=== PATIENT | male | born 1970 | race Hispanic/Latino ===

== ENCOUNTER 2021-01-08 08:45 | Emergency (ER) | payer BC ==
--- NOTE | 2021-01-08 09:05 | EDPHYS ---
Physician Documentation [facility] Name: Wayne Pemberton Jr Age: 50 yrs Sex: Male : 1970 Arrival Date: 01/08/2021 Time: 08:49 Bed 4 Private MD: ED Physician Miguel Bean HPI: 01/08 09:02 This 50 yrs old Male presents to ER via Ambulatory with complaints of Ear Pain rn - antibiotics not working, Facial Swelling. 09:02 The patient presents with pain. The complaints affect the right ear. Onset: The rn symptoms/episode began/occurred 2 day(s) ago. Modifying factors: The symptoms are alleviated by nothing, the symptoms are aggravated by pulling on ears, touching. Associated signs and symptoms: Pertinent negatives: fever, sore throat, vertigo, vomiting. Severity of symptoms: At their worst the symptoms were moderate in the emergency department the symptoms are unchanged. The patient has not experienced similar symptoms in the past. The patient has been recently seen by a physician:. Reports right ear pain for 2 days, seen at clinic, given amoxicillin, still having moderate pain to right ear despite tylenol. No fever. Wears headsets at work. . Historical: - Allergies: 08:59 No Known Allergies; iw - Home Meds: 08:59 None [Active]; iw - PMHx: 08:59 None; iw - PSHx: 08:59 Knee surgery; iw - Immunization history:: Adult Immunizations not up to date. - Social history:: Smoking status: Patient reports the use of cigarette tobacco products, smokes one-half pack cigarettes per day. - Family history:: not pertinent. - Hospitalizations: : No recent hospitalization is reported. ROS: 09:02 Constitutional: Negative for fever, chills, and weight loss, Eyes: Negative for injury, rn pain, redness, and discharge, ENT: + right ear pain and discharge Exam: 09:02 Constitutional: This is a well developed, well nourished patient who is awake, alert, rn and in no acute distress. Head/Face: Normocephalic, atraumatic. ENT: + right external auditory canal with erythema and inflammation, + painful manipulation right ear. normal TM. No perforation. Vital Signs: 08:57 BP 123 / 85; Pulse 79; Resp 16; Pulse Ox 100% on R/A; Weight 89.81 kg; Height 5 ft. 7 iw in. (170.18 cm); Pain 10/10; 08:57 Body Mass Index 31.01 (89.81 kg, 170.18 cm) MDM: 08:52 Patient medically screened. rn 09:02 Differential diagnosis: otitis externa. Data reviewed: vital signs, nurses notes, and rn as a result, I will discharge patient. Counseling: I had a detailed discussion with the patient and/or guardian regarding: the historical points, exam findings, and any diagnostic results supporting the discharge/admit diagnosis, the need for outpatient follow up, to return to the emergency department if symptoms worsen or persist or if there are any questions or concerns that arise at home. Special discussion: I discussed with the patient/guardian in detail that at this point there is no indication for admission to the hospital. It is understood, however, that if the symptoms persist or worsen the patient needs to return immediately for re-evaluation. Administered Medications: No medications were administered Disposition: 01/08/21 09:04 Discharged to Home. Impression: Other otitis externa, right ear. - Condition is Stable. - Discharge Instructions: Ear Drops, Adult, Otitis Externa. - Prescriptions for Ciprodex 0.3- 0.1 % Otic Drops, Suspension - instill 4 drop by OTIC route every 12 hours for 7 days , for ears ONLY; 1 Container. - Medication Reconciliation Form, Thank You Letter, Antibiotic Education, Prescription Opioid Use form. - Follow up: Private Physician; When: As needed; Reason: Recheck today's complaints, Re-evaluation by your physician. - Problem is new. - Symptoms are unchanged. Signatures: Rupal Stevenson RN RN iw Miguel Bean MD MD journeyman pressman: (The following items were deleted from the chart) 09:26 09:04 01/08/2021 09:04 Discharged to Home. Impression: Other otitis externa, right ear. iw Condition is Stable. Forms are Medication Reconciliation Form, Thank You Letter, Antibiotic Education, Prescription Opioid Use. Follow up: Private Physician; When: As needed; Reason: Recheck today's complaints, Re-evaluation by your physician. Problem is new. Symptoms are unchanged. rn
--- NOTE | 2021-01-08 09:05 | ER ---
Nurse's Notes [facility] Name: Wayne Pemberton Jr Age: 50 yrs Sex: Male : 1970 Arrival Date: 01/08/2021 Time: 08:49 Bed 4 Private MD: Diagnosis: Other otitis externa, right ear Presentation: 01/08 08:57 Chief complaint: Patient states: diagnosed with right ear infection on Wednesday, started iw on amoxicillin, still having a lot of pain and feel like he has some swelling on right side of face. Coronavirus screen: At this time, the client does not indicate any symptoms associated with coronavirus-19. Ebola Screen: Patient negative for fever greater than or equal to 101.5 degrees Fahrenheit, and additional compatible Ebola Virus Disease symptoms Patient denies exposure to infectious person. Patient denies travel to an Ebola-affected area in the 21 days before illness onset. No symptoms or risks identified at this time. Initial Sepsis Screen: Does the patient meet any 2 criteria? No. Patient's initial sepsis screen is negative. Does the patient have a suspected source of infection? No. Patient's initial sepsis screen is negative. Risk Assessment: Do you want to hurt yourself or someone else? Patient reports no desire to harm self or others. Onset of symptoms was January 06, 2021. 08:57 Method Of Arrival: Ambulatory iw 08:57 Acuity: MARY 4 iw Historical: - Allergies: 08:59 No Known Allergies; iw - Home Meds: 08:59 None [Active]; iw - PMHx: 08:59 None; iw - PSHx: 08:59 Knee surgery; iw - Immunization history:: Adult Immunizations not up to date. - Social history:: Smoking status: Patient reports the use of cigarette tobacco products, smokes one-half pack cigarettes per day. - Family history:: not pertinent. - Hospitalizations: : No recent hospitalization is reported. Screenin:10 Abuse screen: Denies threats or abuse. Denies injuries from another. Nutritional ss screening: No deficits noted. Tuberculosis screening: Never had TB. Fall Risk None identified. Assessment: 09:11 General: Appears uncomfortable, Behavior is calm, cooperative, Denies fever, feeling ss ill, fatigue, chills. Pain: Complains of pain in right ear Pain currently is 10 out of 10 on a pain scale. Quality of pain is described as aching, throbbing, Is continuous. Neuro: Level of Consciousness is awake, alert, obeys commands, Oriented to person, place, time, situation. Respiratory: Airway is patent Respiratory effort is even, unlabored, Respiratory pattern is regular, symmetrical. GI: Patient currently denies abdominal pain, diarrhea, nausea, vomiting. EENT: Oral mucosa is moist. Derm: Skin is intact, is healthy with good turgor, Skin is dry, Skin is pink, warm \T\ dry. normal. Musculoskeletal: Circulation, motion, and sensation intact. Range of motion: intact in all extremities, Swelling absent. 09:15 General: Appears in no apparent distress. Behavior is calm, cooperative. Pain: iw Complains of pain in right ear. Neuro: Level of Consciousness is awake, alert, obeys commands, Oriented to person, place, time, situation, Moves all extremities. Full function. EENT: Reports pain in right ear. Vital Signs: 08:57 BP 123 / 85; Pulse 79; Resp 16; Pulse Ox 100% on R/A; Weight 89.81 kg; Height 5 ft. 7 iw in. (170.18 cm); Pain 10/10; 08:57 Body Mass Index 31.01 (89.81 kg, 170.18 cm) iw ED Course: 08:49 Patient arrived in ED. as 08:52 Miguel Bean MD is Attending Physician. rn 08:54 Sami Ruelas RN is Primary Nurse. jd3 08:58 Triage completed. iw 08:59 Arm band placed on. iw 09:10 Patient has correct armband on for positive identification. Bed in low position. Call ss light in reach. 09:10 No provider procedures requiring assistance completed. Patient did not have IV access ss during this emergency room visit. Administered Medications: No medications were administered Outcome: 09:04 Discharge ordered by . rn 09:26 Discharged to home ambulatory. iw 09:26 Condition: good 09:26 Discharge instructions given to patient, Instructed on discharge instructions, follow up and referral plans. medication usage, Demonstrated understanding of instructions, follow-up care, medications, Prescriptions given X 1. 09:26 Patient left the ED. iw Signatures: Ruthie Cordon Irene, RN RN iw Miguel Bean MD MD rn Smirch, Shelby, RN RN ss Sami Ruelas, RN RN jd3
== END 2021-01-08 09:26 | disposition home or self-care (01) ==
LOC: ER 08:45
DX: H60.8X1 Other otitis externa, right ear (principal); F17.210 Nicotine dependence, cigarettes, uncomplicated
CPT/HCPCS: 99281

== ENCOUNTER 2024-03-15 21:31 | Emergency (ER) | payer SELFPAY ==
--- OUTSIDE RECORDS SUMMARY | 2024-03-15 21:33 | XMS REPORT | Continuity of Care Document ---
Author Name Unknown Address [address] [facility] [address] [place] [address] [facility] thconnect Address [address] [facility] [address] [place] [address] Care Team Providers Care Cork Grinder Name Role Phone Unavailable Unavailable Unavailable Encounters Start Date/Time End Date/Time Encounter Type Admission Type Attending Clinicians Care Facility Care Department Encounter ID Source 2022-12-31 09:41:43 2022-12-31 09:41:43 Outpatient [facility] [id number] Balbir Burrell 2022-11-17 16:34:03 2022-11-17 16:34:03 Outpatient [facility] [id number] Balbir Burrell
[2024-03-15] MEDS ORDERED: ACETAMINOPHEN 500 MG TAB ONE (22:51)
--- NOTE | 2024-03-15 23:06 | RAD REPORT ---
EXAM DESCRIPTION: RAD - Chest Pa And Lat (2 Views) - 03/15/2024 10:16 pm CLINICAL HISTORY: CHEST PAIN COMPARISON: Chest Pa And Lat (2 Views) dated 01/08/2017; Abdomen 1 View (KUB) dated 01/08/2017; Chest Si ngle View dated 07/23/2016; Chest Single View dated 07/22/2016 TECHNIQUE: PA and lateral views of the chest were obtained. FINDINGS: The lungs are clear. Heart size is normal and central vasculature is within normal limits. No pleural effusion or pneumothorax seen. No acute bony finding noted. IMPRESSION: No acute cardiopulmonary process.
[2024-03-15 23:09] LABS: Absolute Lymphocytes (CBC) 0.9 K/uL (0.7-4.9); Absolute Monocytes 0.3 K/uL (0.1-1.3); Absolute Neutrophil 5.9 K/uL (1.8-8.0); Basophils % 0.2 % (0-1.3); Eosinophils % 0.1 % (0-4.4); Hematocrit 46.5 % (39.6-49.0); Hemoglobin 16.2 g/dL (13.6-17.9); Lymphocytes % 12.6 % (15.3-44.8); MCH 33.9 pg (27.0-35.0); MCHC 34.8 g/dL (32.0-36.0); MCV 97.4 fL (80-100); MPV 7.7 fL (7.6-11.3); Monocytes % 4.4 % (3.3-12.3); Neutrophils % 82.7 % (41.7-73.7); Nucleated Red Blood Cells % 0.2 % (0-0); Platelets 209 thou/uL (152-406); RBC Red Blood Cell Count 4.77 M/uL (4.33-5.43); Red Cell Distribution Width 13.2 % (12.1-15.2)
[2024-03-15 23:23] LABS: Albumin 3.7 g/dL (3.4-5.0); Albumin/Globulin Ratio 0.9 (1.1-1.8); Anion Gap 6.5 mEq/L (5.0-15.0); Bilirubin Total 0.4 mg/dL (0.2-1.0); Globulin 3.9 g/dL (2.3-3.5); Potassium 3.5 mEq/L (3.5-5.1); Protein, Total 7.6 g/dL (6.4-8.2)
[2024-03-15 23:55] LABS: Specific Gravity > 1.030 (1.005-1.030); Sqamous Epithelial None Seen /HPF (None Seen); Urine Bacteria None Seen /HPF (<20); Urine Bilirubin NEGATIVE (Negative); Urine Blood 1+ (Negative); Urine Clarity Clear (Clear); Urine Color Yellow (Yellow); Urine Culture Reflex Order NOT NEEDED; Urine Glucose NEGATIVE (Negative); Urine Ketones TRACE (Negative); Urine Microscopic Reflex YN ORDER UMIC; Urine Mucus 2+ /HPF (None Seen); Urine Nitrite NEGATIVE (Negative); Urine Protein 1+ (Negative); Urine RBC 21-50 /HPF (None Seen); Urine Urobilinogen 2+ (Normal); Urine WBC <5 /HPF (<5); Urine pH 6.5 (5.0-7.0)
[2024-03-15 23:56] LABS: SARS-CoV-2 Antigen CONTROL BLUE LINE VIS/BG OK; SARS-CoV-2 Antigen Rapid Res Negative (Negative)
[2024-03-16 00:27] LABS: Monoscreen NEG (NEG)
--- NOTE | 2024-03-16 02:27 | EDPHYS ---
Physician Documentation [facility] Name: Wayne Pemberton Jr Age: 53 yrs Sex: Male : 1970 Arrival Date: 03/15/2024 Time: 21:31 Bed 14 Private MD: ED Physician Blane Lagos HPI: 03/15 21:36 This 53 yrs old Male presents to ER via Unassigned with complaints of Urinary sp4 Problem, Groin Pain, Fever - Chills. 22:05 Patient is a very pleasant 54-year-old male presents with complaint of generalized sp4 discomfort, fever chills subjective fever, pain in the groins, and also headache and back discomfort starting yesterday morning.. Historical: - Allergies: 21:40 No Known Allergies; as6 - PMHx: 21:40 None; as6 - PSHx: 21:40 Right knee arthroscopy; as6 - Immunization history:: Adult Immunizations not up to date. - Infectious Disease History:: Denies. - Social history:: Smoking status: Patient reports the use of cigarette tobacco products, smokes two packs cigarettes per day. - Family history:: not pertinent. ROS: 22:05 Constitutional: Positive for subjective fever chills back discomfort pain in the groins sp4 and also headache. 22:05 All other systems are negative, Exam: 22:05 Constitutional: This is a well developed, well nourished patient who is awake, alert, sp4 and in no acute distress. Head/Face: Normocephalic, atraumatic. Eyes: Pupils equal round and reactive to light, extra-ocular motions intact. Lids and lashes normal. Conjunctiva and sclera are not injected. Cornea within normal limits. Periorbital areas with no swelling, redness, or edema. ENT: Nares patent. No nasal discharge, no septal abnormalities noted. Tympanic membranes are normal and external auditory canals are clear. Oropharynx with no redness, swelling, or masses, exudates, or evidence of obstruction, uvula midline. Mucous membranes moist. Neck: Trachea midline, no thyromegaly or masses palpated, and no cervical lymphadenopathy. Supple, full range of motion without nuchal rigidity, or vertebral point tenderness. Chest/axilla: Normal chest wall appearance and motion. Nontender with no deformity. No lesions are appreciated. Cardiovascular: Regular rate and rhythm with a normal S1 and S2. No gallops, murmurs, or rubs. Normal PMI, no JVD. No pulse deficits. Respiratory: Lungs have equal breath sounds bilaterally, clear to auscultation and percussion. No rales, rhonchi or wheezes noted. No increased work of breathing, no retractions or nasal flaring. Abdomen/GI: Soft, with normal bowel sounds. No distension or tympany. No guarding or rebound. No evidence of tenderness throughout. Back: No spinal tenderness. No costovertebral tenderness. Skin: Warm, dry with normal turgor. Normal color with no rashes, no lesions, and no evidence of cellulitis. MS/ Extremity: Pulses equal, no cyanosis. Neurovascular intact. Full, normal range of motion. Neuro: Awake and alert, GCS 15, oriented to person, place, time, and situation. Cranial nerves II-XII grossly intact. Motor strength 5/5 in all extremities. Sensory grossly intact. Psych: Awake, alert, with orientation to person, place and time. Behavior, mood, and affect are within normal limits Vital Signs: 21:39 BP 119 / 75; Pulse 86; Resp 16; Temp 99.8; Pulse Ox 98% ; Weight 95.25 kg; Height 5 ft. as6 7 in. ; Pain 5/10; 23:10 BP 100 / 68; Pulse 72; Resp 16; Pulse Ox 97% on R/A; ha1 23:30 BP 101 / 71; Pulse 58; Resp 16; Pulse Ox 95% on R/A; ha1 03/16 00:30 BP 96 / 59; Pulse 59; Resp 16; Pulse Ox 99% on R/A; ha1 01:30 BP 100 / 66; Pulse 56; Resp 16; Pulse Ox 98% on R/A; ha1 02:21 BP 109 / 70; Pulse 55; Resp 16; Pulse Ox 99% on R/A; ha1 03/15 21:39 Body Mass Index 32.89 (95.25 kg, 170.18 cm) as6 03/15 21:39 Pain Scale: Adult as6 Ousmane Coma Score: 03/15 22:05 Eye Response: spontaneous(4). Motor Response: obeys commands(6). Verbal Response: sp4 oriented(5). Total: 15. MDM: 21:38 Patient medically screened. sp4 03/16 02:21 ED course: EXAM DESCRIPTION: RAD - Chest Pa And Lat (2 Views) - 03/15/2024 10:16 pm sp4 CLINICAL HISTORY: CHEST PAIN COMPARISON: Chest Pa And Lat (2 Views) dated 01/08/2017; Abdomen 1 View (KUB) dated 01/08/2017; Chest Single View dated 07/23/2016; Chest Single View dated 07/22/2016 TECHNIQUE: PA and lateral views of the chest were obtained. FINDINGS: The lungs are clear. Heart size is normal and central vasculature is within normal limits. No pleural effusion or pneumothorax seen. No acute bony finding noted. IMPRESSION: No acute cardiopulmonary process.. 02:25 Differential diagnosis: viral Infection, bacterial infection, URI, bronchitis, sp4 pneumonia UTI, gastroenteritis. Data reviewed: vital signs, nurses notes. Consideration of Admission/Observation Escalation of care including admission/observation considered. ED course: Patient's workup basically does not reveal signs of significant bacterial infection. Possibly common cold/acute systemic viral illness. Will prescribe symptomatic medications.. 03/15 21:38 Order name: CBC with Diff; Complete Time: 02:13 sp4 03/15 21:38 Order name: CMP; Complete Time: 02:13 sp4 03/15 21:38 Order name: Lipase; Complete Time: 02:13 sp4 03/15 21:38 Order name: Urinalysis w/ reflexes; Complete Time: 02:13 sp4 03/15 22:04 Order name: Influenza Screen (a \T\ B); Complete Time: 02:13 sp4 03/15 22:04 Order name: SARS RAPID; Complete Time: 02:13 sp4 03/15 22:04 Order name: [place] Screen Profile; Complete Time: 02:13 sp4 03/15 22:04 Order name: CRP; Complete Time: 02:13 sp4 03/15 22:04 Order name: Chest Pa And Lat (2 Views) XRAY; Complete Time: 02:13 sp4 03/15 21:38 Order name: IV Saline Lock; Complete Time: 22:59 sp4 03/15 21:38 Order name: Labs collected and sent; Complete Time: 22:59 sp4 Administered Medications: 03/15 22:54 Drug: Acetaminophen PO 1000 mg PO once Route: PO; ha1 23:24 Follow up: Response: No adverse reaction; Pain is decreased ha1 Disposition Summary: 03/16/24 02:27 Discharge Ordered Notes: Location: Home sp4 Problem: new sp4 Symptoms: have improved sp4 Condition: Stable sp4 Diagnosis - Fever, unspecified sp4 - Acute viral illness, Common Cold sp4 Followup: sp4 - With: Private Physician - When: 7 - 10 days - Reason: Recheck today's complaints Discharge Instructions: - Discharge Summary Sheet sp4 - Fever, Adult sp4 Forms: - Patient Portal Instructions sp4 Prescriptions: - Ibuprofen 800 mg Oral tablet - take 1 tablet ORAL route every 6 hours As needed PRN FEVER OR PAIN; 30 tablet; sp4 Refills: 0, Product Selection Permitted - ondansetron 8 mg Oral Tablet,disintegrating - take 1 tablet ORAL route every 8 hours PRN nausea; 30 tablet; Refills: 0, sp4 Product Selection Permitted Signatures: Dispatcher [employer] Jimmy Santiago RN RN as6 Carolyn Bray RN RN ha1 Blane Lagos MD MD sp4
--- NOTE | 2024-03-16 02:27 | ER ---
Nurse's Notes [facility] Name: Wayne Pemberton Jr Age: 53 yrs Sex: Male : 1970 Arrival Date: 03/15/2024 Time: 21:31 Bed 14 Private MD: Diagnosis: Fever, unspecified;Acute viral illness, Common Cold Presentation: 03/15 21:39 Chief complaint: Patient states: fever, chills, headache, started yesterday. as6 Coronavirus screen: At this time, the client does not indicate any symptoms associated with coronavirus-19. Ebola Screen: No symptoms or risks identified at this time. Initial Sepsis Screen: Does the patient meet any 2 criteria? No. Patient's initial sepsis screen is negative. Does the patient have a suspected source of infection? No. Patient's initial sepsis screen is negative. Risk Assessment: Do you want to hurt yourself or someone else? Patient reports no desire to harm self or others. Onset of symptoms was March 14, 2024. 21:39 Acuity: MARY 3 as6 21:39 Method Of Arrival: Ambulatory as6 Historical: - Allergies: 21:40 No Known Allergies; as6 - PMHx: 21:40 None; as6 - PSHx: 21:40 Right knee arthroscopy; as6 - Immunization history:: Adult Immunizations not up to date. - Infectious Disease History:: Denies. - Social history:: Smoking status: Patient reports the use of cigarette tobacco products, smokes two packs cigarettes per day. - Family history:: not pertinent. Screenin:12 [facility] ED Fall Risk Assessment (Adult) History of falling in the last 3 months, ha1 including since admission No falls in past 3 months (0 pts) Confusion or Disorientation No (0 pts) Intoxicated or Sedated No (0 pts) Impaired Gait No (0 pts) Mobility Assist Device Used No (0 pt) Altered Elimination No (0 pt) Score/Fall Risk Level 0 - 2 = Low Risk Oriented to surroundings, Maintained a safe environment, Hourly rounding (assess needs \T\ fall precautionary measures) done. Abuse screen: Denies threats or abuse. Denies injuries from another. Nutritional screening: No deficits noted. Tuberculosis screening: No symptoms or risk factors identified. Assessment: 22:45 General: Appears in no apparent distress. Behavior is calm, cooperative. ha1 22:45 General: Fever, chills. Unknown how high temp was at home but woke up in cold sweats. ha1 Pain: Complains of pain in head Pain currently is 4 out of 10 on a pain scale. Quality of pain is described as aching. Neuro: Lan Agitation-Sedation Scale (RASS): 0 - Alert and Calm Level of Consciousness is awake, alert, Oriented to person, place, time, situation, Appropriate for age Speech is normal, Facial symmetry appears normal, Reports headache. Cardiovascular: Denies chest pain. Respiratory: No deficits noted. GI: No deficits noted. GI:. : No deficits noted. : Denies urinary symptoms. EENT: No deficits noted. EENT: Musculoskeletal: No deficits noted. Circulation, motion, and sensation intact. Capillary refill < 3 seconds, Range of motion: intact in all extremities. 23:45 Reassessment: Patient and/or family updated on plan of care and expected duration. Pain ha1 level reassessed. Patient is alert, oriented x 3, equal unlabored respirations, skin warm/dry/pink. 03/16 00:40 Reassessment: eyes closed. Respiratory: Airway is patent Respiratory effort is even, ha1 unlabored, Respiratory pattern is regular, symmetrical. 01:40 Reassessment: Patient and/or family updated on plan of care and expected duration. Pain ha1 level reassessed. Patient is alert, oriented x 3, equal unlabored respirations, skin warm/dry/pink. Patient states feeling better. Patient states symptoms have improved. Vital Signs: 03/15 21:39 BP 119 / 75; Pulse 86; Resp 16; Temp 99.8; Pulse Ox 98% ; Weight 95.25 kg; Height 5 ft. as6 7 in. ; Pain 5/10; 23:10 BP 100 / 68; Pulse 72; Resp 16; Pulse Ox 97% on R/A; ha1 23:30 BP 101 / 71; Pulse 58; Resp 16; Pulse Ox 95% on R/A; ha1 13 00:30 BP 96 / 59; Pulse 59; Resp 16; Pulse Ox 99% on R/A; ha1 01:30 BP 100 / 66; Pulse 56; Resp 16; Pulse Ox 98% on R/A; ha1 02:21 BP 109 / 70; Pulse 55; Resp 16; Pulse Ox 99% on R/A; ha1 03/15 21:39 Body Mass Index 32.89 (95.25 kg, 170.18 cm) as6 06/ 21:39 Pain Scale: Adult as6 Ousmane Coma Score: 03/15 22:05 Eye Response: spontaneous(4). Motor Response: obeys commands(6). Verbal Response: sp4 oriented(5). Total: 15. ED Course: 21:33 Patient arrived in ED. ra3 21:36 Blane Lagos MD is Attending Physician. sp4 21:40 Triage completed. as6 21:40 Arm band placed on. as6 21:41 Patient has correct armband on for positive identification. Placed in gown. Bed in low ha1 position. Call light in reach. Side rails up X2. Adult w/ patient. 22:18 Chest Pa And Lat (2 Views) XRAY In Process Unspecified. EDMS 22:38 Carolyn Bray, RN is Primary Nurse. ha1 22:45 Inserted saline lock: 20 gauge in right antecubital area, using aseptic technique. ha1 Blood collected. 22:59 CRP Sent. ha1 22:59 [place] Screen Profile Sent. ha1 22:59 SARS RAPID Sent. ha1 22:59 Influenza Screen (a \T\ B) Sent. ha1 22:59 CBC with Diff Sent. ha1 23:00 CMP Sent. ha1 23:00 Lipase Sent. ha1 23:00 Urinalysis w/ reflexes Sent. ha1 23:13 Provided Education on: medication administration. ha1 03/16 02:30 No provider procedures requiring assistance completed. ha1 02:30 IV discontinued, intact, bleeding controlled, No redness/swelling at site. Pressure ha1 dressing applied. Administered Medications: 03/15 22:54 Drug: Acetaminophen PO 1000 mg PO once Route: PO; ha1 23:24 Follow up: Response: No adverse reaction; Pain is decreased ha1 Medication: 23:14 VIS not applicable for this client. ha1 Outcome: 03/16 02:27 Discharge ordered by . sp4 02:31 Discharged to home ambulatory, with family, ha1 02:31 Discharged to home 02:31 Condition: stable 02:31 Condition: stable 02:31 Discharge instructions given to patient, friend, Instructed on discharge instructions, follow up and referral plans. medication usage, Demonstrated understanding of instructions, follow-up care, medications, Prescriptions given X 2, 02:31 Discharge instructions given to Instructed on Demonstrated understanding of instructions, follow-up care, medications, 02:49 Patient left the ED. ha1 Signatures: Dispatcher [employer] EDMS Jimmy Zapata RN RN as6 Carolyn Bray RN RN ha1 Blane Lagos MD MD sp4 Amelia Davison ra3
[2024-03-16 04:00] VITALS: BP 109/70; TEMP 99.8; O2SAT 99
== END 2024-03-16 02:49 | disposition home or self-care (01) ==
LOC: ER 21:31
DX: B34.9 Viral infection, unspecified (principal); J00 Acute nasopharyngitis [common cold]
CPT/HCPCS: 36415; 71046; 80053; 81001; 83690; 85025; 86140; 86308; 87804; 87811; 99284

== ENCOUNTER 2024-09-19 07:23 | Emergency (ER) | payer SELFPAY ==
--- OUTSIDE RECORDS SUMMARY | 2024-09-19 07:25 | XMS REPORT | Continuity of Care Document ---
Author Name Unknown Address [address] [facility] [address] [place] [address] [facility] thconnect Address [address] [facility] [address] [place] [address] Care Team Providers Care Planning Associate Name Role Phone Unavailable Unavailable Unavailable Encounters Start Date/Time End Date/Time Encounter Type Admission Type Attending Clinicians Care Facility Care Department Encounter ID Source 2022-12-31 09:41:43 2022-12-31 09:41:43 Outpatient [facility] [id number] Balbir Burrell 2022-11-17 16:34:03 2022-11-17 16:34:03 Outpatient [facility] [id number] Balbir Burrell
[2024-09-19] MEDS ORDERED: ACETAMINOPHEN 500 MG TAB ONE (07:52)
[2024-09-19 08:12] LABS: SARS-CoV-2 Antigen CONTROL BLUE LINE VIS/BG OK; SARS-CoV-2 Antigen Rapid Res Negative (Negative)
--- NOTE | 2024-09-19 08:39 | EDPHYS ---
Physician Documentation [facility] Name: Wayne Pemberton Jr Age: 54 yrs Sex: Male : 1970 Arrival Date: 09/19/2024 Time: 07:23 Bed 8 Private MD: ED Physician Quentin Zarate HPI: 09/19 17:02 This 54 yrs old Male presents to ER via Ambulatory with complaints of Flu ms3 Symptoms, Ear Pain. 17:02 Wayne Pemberton is a 54-year-old male presenting to the emergency department with symptoms ms3 suggestive of the flu. He reports feeling extremely tired since Wednesday, with the worst symptoms occurring on Wednesday. He experienced significant coughing, which caused rib pain, and has been taking a combination [id number] severe cold and flu medication every four hours to manage his symptoms, including fever and cough. Despite feeling somewhat better yesterday, his symptoms worsened again by the evening. He describes experiencing night sweats and left ear discomfort. He rates his overall discomfort as an eight out of ten. Mr. Pemberton has been staying hydrated with Gatorade but has not eaten due to his symptoms. He took ibuprofen this morning and throughout the previous night to manage his discomfort.. Historical: - Allergies: 07:38 No Known Allergies; kc6 - Home Meds: 07:38 None [Active]; kc6 - PMHx: 07:38 None; kc6 - PSHx: 07:38 Right knee arthroscopy; kc6 - Immunization history:: Adult Immunizations up to date. - Infectious Disease History:: Denies. - Social history:: Smoking status: Patient reports the use of cigarette tobacco products, smokes one-half pack cigarettes per day. ROS: 17:02 Cardiovascular: Negative for chest pain, and palpitations. Respiratory: Negative for ms3 shortness of breath, cough, wheezing, and pleuritic chest pain, Abdomen/GI: Negative for abdominal pain, nausea, vomiting, diarrhea, and constipation, MS/Extremity: Negative for injury and deformity, 17:02 Constitutional: Positive for chills, 17:02 ENT: Positive for rhinorrhea, sinus congestion, Exam: 17:02 Constitutional: This is a well developed, well nourished patient who is awake, alert, ms3 and in no acute distress. Head/Face: Normocephalic, atraumatic. Chest/axilla: Normal chest wall appearance and motion. Nontender with no deformity. Cardiovascular: Regular rate and rhythm with a normal S1 and S2. No gallops, murmurs, or rubs. Normal PMI, no JVD. No pulse deficits. Respiratory: Lungs have equal breath sounds bilaterally, clear to auscultation and percussion. No rales, rhonchi or wheezes noted. No increased work of breathing, no retractions or nasal flaring. Abdomen/GI: Soft, non-tender, with normal bowel sounds. No distension or tympany. No guarding or rebound. No evidence of tenderness throughout. Skin: Warm, dry with normal turgor. Normal color with no rashes, no lesions, and no evidence of cellulitis. MS/ Extremity: Pulses equal, no cyanosis. Neurovascular intact. Full, normal range of motion. Vital Signs: 07:35 BP 112 / 79; Pulse 85; Resp 18 S; Temp 99.2(O); Pulse Ox 96% on R/A; Weight 90.72 kg kc6 (R); Height 5 ft. 7 in. (R); 08:43 BP 116 / 70; Pulse 77; Resp 17 S; Pulse Ox 99% on R/A; kc6 07:35 Body Mass Index 31.32 (90.72 kg, 170.18 cm) kc6 MDM: 07:44 Medical Screening Exam initiated ms3 17:02 Differential diagnosis: otitis media, COVID vs Flu. Data reviewed: vital signs, nurses ms3 notes, lab test result(s), and as a result, I will discharge patient. I considered the following discharge prescriptions or medication management in the emergency department Medications were administered in the Emergency Department. See MAR. Counseling: I had a detailed discussion with the patient and/or guardian regarding the historical points, exam findings, and any diagnostic results supporting the discharge/admit diagnosis, lab results, the need for outpatient follow up, to return to the emergency department if symptoms worsen or persist or if there are any questions or concerns that arise at home. Special discussion: I discussed with the patient/guardian in detail that at this point there is no indication for admission to the hospital. It is understood, however, that if the symptoms persist or worsen the patient needs to return immediately for re-evaluation. ED course: Discussed negative flu and COVID results with patient. Patient to follow-up with primary care physician 2 to 3 days. Patient understands agrees with plan. All questions were answered. Return precautions discussed include worsening symptoms, or any other concerns. On reevaluation patient is alert and oriented x 4, no apparent distress, nontoxic-appearing, speaking full sentences.. 09/19 07:37 Order name: Influenza Screen (a \T\ B); Complete Time: 08:23 ko1 09/19 07:37 Order name: SARS RAPID; Complete Time: 08:23 ko1 Administered Medications: 07:58 Drug: Acetaminophen PO 1000 mg PO once Route: PO; kc6 08:42 Follow up: Response: No adverse reaction kc6 Disposition Summary: 09/19/24 08:39 Discharge Ordered Notes: Location: Home ms3 Condition: Stable ms3 Diagnosis - Acute upper respiratory infection, unspecified ms3 Followup: ms3 - With: Mariano Pack DO - When: 2 - 3 days - Reason: Recheck today's complaints Discharge Instructions: - Discharge Summary Sheet ms3 - Upper Respiratory Infection, Adult ms3 Forms: - Medication Reconciliation Form ms3 - Antibiotic Education ms3 - Prescription Opioid Use ms3 - Patient Portal Instructions ms3 - Leadership Thank You Letter ms3 Prescriptions: - Claritin 10 mg Oral Tablet - take 1 tablet ORAL route once daily As needed; 30 tablet; Refills: 0, Product ms3 Selection Permitted Signatures: Dispatcher [employer] EDMS Quentin Zarate DO DO ms3 Shoshana Dan RN RN kc6 Corrections: (The following items were deleted from the chart) 07:38 07:38 Influenza Screen (A \T\ B)+BA.LAB.BRZ ordered. EDMS EDMS 07:38 07:38 SARS-COV-2 Antigen Rapid+I.LAB.BRZ ordered. EDMS EDMS
--- NOTE | 2024-09-19 08:39 | ER ---
Nurse's Notes [facility] Name: Wayne Pemberton Jr Age: 54 yrs Sex: Male : 1970 Arrival Date: 09/19/2024 Time: 07:23 Bed 8 Private MD: Diagnosis: Acute upper respiratory infection, unspecified Presentation: 09/19 07:35 Chief complaint: Patient states: cough, congestion, chills, lower back and left ear kc6 pain since Wednesday. pt reports his daughter tested (+) for the flu. pt states, "I haven't felt this bad in years and nothing I take at home is working.". Coronavirus screen: At this time, the client does not indicate any symptoms associated with coronavirus-19. Ebola Screen: No symptoms or risks identified at this time. Initial Sepsis Screen: Does the patient meet any 2 criteria? No. Patient's initial sepsis screen is negative. Does the patient have a suspected source of infection? No. Patient's initial sepsis screen is negative. Risk Assessment: Do you want to hurt yourself or someone else? Patient reports no desire to harm self or others. Onset of symptoms was September 15, 2024. 07:35 Method Of Arrival: Ambulatory kc6 07:35 Acuity: MARY 4 kc6 Historical: - Allergies: 07:38 No Known Allergies; kc6 - Home Meds: 07:38 None [Active]; kc6 - PMHx: 07:38 None; kc6 - PSHx: 07:38 Right knee arthroscopy; kc6 - Immunization history:: Adult Immunizations up to date. - Infectious Disease History:: Denies. - Social history:: Smoking status: Patient reports the use of cigarette tobacco products, smokes one-half pack cigarettes per day. Screenin:38 [facility] ED Fall Risk Assessment (Adult) History of falling in the last 3 months, kc6 including since admission No falls in past 3 months (0 pts) Confusion or Disorientation No (0 pts) Intoxicated or Sedated No (0 pts) Impaired Gait No (0 pts) Mobility Assist Device Used No (0 pt) Altered Elimination No (0 pt) Score/Fall Risk Level 0 - 2 = Low Risk Oriented to surroundings, Maintained a safe environment. Abuse screen: Denies threats or abuse. Denies injuries from another. Nutritional screening: No deficits noted. Tuberculosis screening: No symptoms or risk factors identified. Assessment: 07:38 General: Appears in no apparent distress. uncomfortable, well groomed, well developed, kc6 Behavior is calm, cooperative, appropriate for age. Pain: Complains of pain in left ear, lumbar area, left low back and right low back. Neuro: Level of Consciousness is awake, alert, obeys commands, Oriented to person, place, time, situation, Appropriate for age. Cardiovascular: Capillary refill < 3 seconds. Respiratory: Reports cough that is persistent Airway is patent Trachea midline Respiratory effort is even, unlabored, Respiratory pattern is regular, symmetrical. GI: No signs and/or symptoms were reported involving the gastrointestinal system. : No signs and/or symptoms were reported regarding the genitourinary system. EENT: Reports nasal congestion pain in left ear. Derm: No signs and/or symptoms reported regarding the dermatologic system. Skin is intact, is healthy with good turgor, Skin is pink, warm \\T\\ dry. Musculoskeletal: No signs and/or symptoms reported regarding the musculoskeletal system. Circulation, motion, and sensation intact. Capillary refill < 3 seconds, Range of motion: intact in all extremities. 08:43 Reassessment: Patient appears in no apparent distress at this time. No changes from kc previously documented assessment. Patient and/or family updated on plan of care and expected duration. Pain level reassessed. Patient is alert, oriented x 3, equal unlabored respirations, skin warm/dry/pink. Vital Signs: 07:35 BP 112 / 79; Pulse 85; Resp 18 S; Temp 99.2(O); Pulse Ox 96% on R/A; Weight 90.72 kg kc6 (R); Height 5 ft. 7 in. (R); 08:43 BP 116 / 70; Pulse 77; Resp 17 S; Pulse Ox 99% on R/A; kc6 07:35 Body Mass Index 31.32 (90.72 kg, 170.18 cm) 6 ED Course: 07:27 Patient arrived in ED. sj2 07:35 Shoshana Dan, SUSAN is Primary Nurse. kc6 07:36 Quentin Zarate DO is Attending Physician. ms3 07:38 Triage completed. kc6 07:38 Arm band placed on. kc6 07:38 Patient has correct armband on for positive identification. Bed in low position. Call kc6 light in reach. Side rails up X 1. Adult w/ patient. Pulse ox on. NIBP on. Door closed. Noise minimized. Lights dimmed. Pillow given. 07:38 Patient maintains SpO2 saturation greater than 95% on room air. kc6 08:38 Mariano Pack DO is Referral Physician. ms3 08:43 No provider procedures requiring assistance completed. Patient did not have IV access kc6 during this emergency room visit. 08:44 Provided Education on: managing flu like symptoms at home. kc6 Administered Medications: 07:58 Drug: Acetaminophen PO 1000 mg PO once Route: PO; kc6 08:42 Follow up: Response: No adverse reaction kc6 Medication: 08:44 VIS not applicable for this client. kc6 Outcome: 08:39 Discharge ordered by . ms3 08:43 Discharged to home ambulatory, with significant other, kc6 08:43 Condition: good 08:43 Discharge instructions given to patient, significant other, Instructed on discharge instructions, follow up and referral plans. medication usage, Demonstrated understanding of instructions, follow-up care, medications, Prescriptions given X 1, 08:44 Patient left the ED. kc6 Signatures: Quentin Zarate DO DO ms3 Shoshana Dan, RN RN kc6 Alice Shahid2
[2024-09-19 08:48] VITALS: TEMP 99.2
[2024-09-19 08:50] VITALS: BP 116/70; O2SAT 99
== END 2024-09-19 08:44 | disposition home or self-care (01) ==
LOC: ER 07:23
DX: J06.9 Acute upper respiratory infection, unspecified (principal); Z11.52 Encounter for screening for COVID-19
CPT/HCPCS: 36415; 87804; 87811; 99283